=== PATIENT | male | born 2000 | race Caucasian/White ===

== ENCOUNTER 2024-11-29 23:08 | Emergency (ER) | payer SELFPAY ==
--- OUTSIDE RECORDS SUMMARY | 2024-11-29 23:11 | XMS REPORT | Continuity of Care Document ---
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 Role Phone ZAFAR SELLERS Attending Clinician Unavailable Problems Condition Name Condition Details Condition Category Status Onset Date Resolution Date Last Treatment Date Treating Clinician Comments Source Problem Condition [facility] Allergies, Adverse Reactions, Alerts Allergy Name Allergy Type Status Severity Reaction(s) Onset Date Inactive Date Treating Clinician Comments Source Amoxicil clemente Allergy to substanc e Active Unknown 12-16 00:00: 00 [facility] Social History Social Habit Start Date Stop Date Quantity Comments Source Sex Assigned At 2000 00:00:00 2000 00:00:00 Male [facility] Smoking Status Start Date Stop Date Source Unknown if ever smoked [facility] Medications Ordered Medication Name Filled Medication Name Start Date Stop Date Current Medication? Ordering Clinician Indication Dosage Frequency Signature (SIG) Comments Components Source Ofloxacin (Floxin Otic Soln) 5 Ml SOLN 11-14 11:13: 00 No 5[drp] Twice A Day [facility] Prednisone (Deltasone) 10 Mg TAB 2 10:51: 00 No 10mg Daily [facility] Promethazin e Hcl/Dextrom ethorphan (Phenergan Dm Liq) 118 Ml SYRP 2 10:51: 00 12-23 00:00 :00 No 5mL Every 6 Hours for Cough [facility] Trimethopri m/Sulfameth oxazole (Bactrim Ds, Septra Ds, Sulfatrim Ds) 1 Each TAB 2-05 10:51: 00 12-03 00:00 :00 No 1 Twice A Day [facility] Cephalexin (Keflex) 500 Mg CAP 01-14 18:00: 00 No 500mg Four Times Daily [facility] Cefdinir (Omnicef) 300 Mg CAP 12-16 10:42: 00 No 300mg Twice A Day [facility] Cetirizine Hcl (Zyrtec) 10 Mg TAB 12-16 10:42: 00 No 10mg Daily [facility] Ibuprofen (Motrin) 800 Mg TAB 12-16 10:42: 00 No 800mg Every 8 Hours as needed for Pain Or Temp>100 [facility] Neomycin/Po lymyxin/Hyd rocortisone (Cortispori n Otic Soln) 10 Ml DROPS.SUSP 12-16 10:42: 00 No 3[drp] Three Times A Day [facility] Vital Signs Vital Name Observation Time Observation Value Comments S kirsty BP Diastolic 2020-11-14 11:26:00 75 mm[Hg] [facility] BP Systolic 2020-11-14 11:26:00 124 mm[Hg] [facility] Heart Rate 2020-11-14 11:26:00 83 /min [facility] Respiratory rate 2020-11-14 11:26:00 15 /min [facility] Body Temperature 2020-11-14 11:26:00 97.7 [degF] [facility] BP Diastolic 2020-11-14 09:55:00 75 mm[Hg] [facility] BP Systolic 2020-11-14 09:55:00 124 mm[Hg] [facility] Heart Rate 2020-11-14 09:55:00 83 /min [facility] Respiratory rate 2020-11-14 09:55:00 15 /min [facility] Body Temperature 2020-11-14 09:55:00 97.7 [degF] [facility] Procedures Procedure Date / Time Performed Performing Clinicia n Source EMERGENCY DEPT VISIT 2020-11-14 00:00:00 [facility] Encounters Start Date/Time End Date/Time Encounter Type Admission Type Attending Clinicians Care Facility Care Department Encounter ID Source 2020-11-14 09:44:00 2020-11-14 11:27:00 Departed Emergency Room ZAFAR SELLERS [id number] [facility] Results Test Description Test Time Test Comments Results Resul t Comments Source PATHOLOGY REPORT 2019-02-10 11:45:00 [facility] PATHOLOGYP.[address], [place] [address] [facility] ROBERTH ANDREW M.D.ROBERT L. HUTTON, M.D.CHARLES E. BURNS, M.D. Pati ent: VIJI CARTER 2000 [id number] MRoom:Hosp#: [id number] O rdering Physician: Cinthia SIMPSON Rec.: 02/09/2019Date of Proc.: 02/09/2019Lab No.: [id number] _PRE-OPERATIVE DIAGNOSIS:Chronic tonsillitis, hypertrophy.FINAL ANATOMIC DIAGNOSIS:TONSILS, BILATERAL TONSILLECTOMY:TONSILLA R TISSUE WITH REACTIVE LYMPHOID HYPERPLASIA.MICROSCOPI C EXAMINATION:One slide examined, description omitted.GROSS APPEARANCE:Labeled "tonsils," consists of two tonsils measuring 2.4 and 2.5 cmrespectively. On sectioning no mass lesions are identified.Loreto esposito submitted one cassette.PATHOLOGIST: Epifanio Busby Electronically Signed: 02/10/2019 [id number] 13:05:00* Test Item Value Reference Range Interpretation Comme nts PTT (test code = PTT) 34.3 SECONDS 24.4-36.3 HEPARIN THERAPEU TIC RANGE 57-92 SECONDS [id number] 12:17:00* Test Item Value Reference Range Interpretation Comme nts WBC (test code = WBC) 6.5 K/UL 3.5-10.9 RBC (test code = RBC) 5.15 M/UL 4.3-5.7 HGB (test code = HGB) 15.2 G/DL 13.0-17.9 HCT (test code = HCT) 45.4 % 38-52 MCV (test code = MCV) 88.2 FL 80-98 MCH (test code = MCH) 29.5 PG 28-32 MCHC (test code = MCHC) 33.5 G/DL 32.5-36.5 RDW (test code = RDW) 13.1 % 11.5-14.5 PLT (test code = PLT) 392 K/UL 150-450 MPV (test code = MPV) 10.0 FL 7.4-10.4 MANDIFF (test code = MANDIFF) NO SCAN (test code = SCAN) NO NEUT% (test code = NEUT%) 48.6 % 40-75 LYMPH% (test code = LYMPH%) 36.6 % 24-44 MONO% (test code = MONO%) 10.3 % 0-13 EOS% (test code = EOS%) 3.7 % 0-4 BASO % (test code = BASO%) 0.6 % 0-2 IG (test code = IG) 0 % 0-1 IG% (test code = IG%) 0.2 % 0-1 IG% = Metamyeloc ytes, Myelocytes, and Promyelocytes. (Immature neutrophils not including "bands".) > 3% IG indicates risk of sepsis NRBC% (test code = NRBC%) 0 /100 WBC ABS NEUT (test code = NEUT) 3.2 K/UL 1.2-7.2 Notes Date/Time Note Provider Source 2019-02-09 10:06:[address] [address] Patient Name: VIJI CARTER Patient#: [id number] Admission Date: 02/09/2019 Date of : 2000 Age/Gender: 19/M HSSV/RM/BED: DSE/ Admitting Phys: Gregorio Simpson MD OPERATIVE NOTE DATE OF SURGERY: 02/09/2019 SURGEON: Gregorio Simpson MD PREOPERATIVE DIAGNOSIS Recurrent otitis media, recurrent adenotonsillitis and adenotonsillar hypertrophy causing snoring-sleep disorder. POSTOPERATIVE DIAGNOSIS Recurrent otitis media, tonsillar hypertrophy and recurrent tonsillitis causing snoring-sleep disorder. TITLE OF PROCEDURE 1.Tonsillectomy 2.Bilateral tympanostomy with placement of pressure equalizing tubes using the operating microscope. ANESTHESIA General. ANESTHESIOLOGIST Field. INDICATION FOR SURGERY The patient had recurrent otitis media, recurrent tonsillitis and tonsillar hypertrophy. FINDINGS Patient had serous fluid both middle ear clefts no perforations, no cholesteatomas, no other abnormalities. He had no adenoidal tissue in the nasopharynx. There was no submucous cleft. No shortened palate. No deepened pharynx. He had 3+ enlarged deeply recessed necrotic tonsils that were holding food debris. COMPLICATIONS None. ESTIMATED BLOOD LOSS Less than 10 cc. DESCRIPTION OF PROCEDURE The patient was taken to the operating room and under microscopic power, external auditory canals were cleaned. Anterior inferior myringotomy was performed. Fluid was suctioned free of the middle ear cleft and an Barrow grommet tube was placed without difficulty. Ciprodex drops were placed in the external auditory canal. Cotton balls were placed in the meatus. The patient was taken to the operating room and induced with general anesthesia. A tonsillar gag was introduced. Digital palpation and passive mobility studies were performed of the palate, including mirror exam in the nasopharynx. Using a curved Allis, we were able to grasp the left tonsil. Using a Wilkinson tip Bovie Legally authenticated by SANAZ CORRALES 2019-02-10 08:52:52 on low coag current, we performed cauterization tonsillectomy on the left side. The same procedure was performed on the right. Adequate hemostasis was achieved. The tonsillar gag was released. There was no bleeding. Gregorio Simpson MD TT: 02/09/2019 10:06:24 CCJ/MODL /[id number] Electronically Authenticated and Edited by: Gregorio Simpson M.D. on 02/10/2019 08:52 AM CDT Legally authenticated by SANAZ CORRALES 2019-02-10 08:52:52 GREGORIO SIMPSON
--- NOTE | 2024-11-29 23:48 | EDPHYS ---
Physician Documentation [facility] Name: Damian Horan Age: 24 yrs Sex: Male : 2000 Arrival Date: 11/29/2024 Time: 23:08 Bed 12 Private MD: ED Physician Mohan Arguelles HPI: 11/29 23:18 This 24 yrs old Male presents to ER via Unassigned with complaints of Rectal sp4 Bleeding. 11/30 23:37 24-year-old male presents with 2 months of episodic bright red rectal bleeding. He sp4 reported some pain with bleeding.. Historical: - Allergies: 11/29 23:25 Amoxicillin; me1 - Home Meds: 23:25 None [Active]; me1 - PMHx: 23:25 None; me1 - PSHx: 23:25 Appendectomy; me1 - Immunization history:: Adult Immunizations up to date. - Infectious Disease History:: Denies. - Social history:: Smoking status: Patient denies any tobacco usage or history of. - Family history:: not pertinent. ROS: 11/30 23:37 Constitutional: Negative for fever, chills, and weight loss, positive rectal bleed sp4 All other systems are negative, Exam: 23:37 Constitutional: This is a well developed, well nourished patient who is awake, alert, sp4 and in no acute distress. Head/Face: Normocephalic, atraumatic. Eyes: Pupils equal round and reactive to light, extra-ocular motions intact. Lids and lashes normal. Conjunctiva and sclera are not injected. Cornea within normal limits. Periorbital areas with no swelling, redness, or edema. ENT: Nares patent. No nasal discharge, no septal abnormalities noted. Tympanic membranes are normal and external auditory canals are clear. Oropharynx with no redness, swelling, or masses, exudates, or evidence of obstruction, uvula midline. Mucous membranes moist. Neck: Trachea midline, no thyromegaly or masses palpated, and no cervical lymphadenopathy. Supple, full range of motion without nuchal rigidity, or vertebral point tenderness. Chest/axilla: Normal chest wall appearance and motion. Nontender with no deformity. No lesions are appreciated. Cardiovascular: Regular rate and rhythm with a normal S1 and S2. No gallops, murmurs, or rubs. Normal PMI, no JVD. No pulse deficits. Respiratory: Lungs have equal breath sounds bilaterally, clear to auscultation and percussion. No rales, rhonchi or wheezes noted. No increased work of breathing, no retractions or nasal flaring. Abdomen/GI: Soft, with normal bowel sounds. No distension or tympany. No guarding or rebound. No evidence of tenderness throughout. Back: No spinal tenderness. No costovertebral tenderness. Male : Normal genitalia with no discharge or lesions. Normal rectal tone, normal examination with no blood no melena, no mass, no hemorrhoids, no signs of fissures or fistulas. No active bleeding. Skin: Warm, dry with normal turgor. Normal color with no rashes, no lesions, and no evidence of cellulitis. MS/ Extremity: Pulses equal, no cyanosis. Neurovascular intact. Full, normal range of motion. Neuro: Awake and alert, GCS 15, oriented to person, place, time, and situation. Cranial nerves II-XII grossly intact. Motor strength 5/5 in all extremities. Sensory grossly intact. Psych: Awake, alert, with orientation to person, place and time. Behavior, mood, and affect are within normal limits Vital Signs: 11/29 23:23 BP 140 / 85; Pulse 101; Resp 17; Temp 98.1; Pulse Ox 97% ; Weight 127.01 kg; Height 6 me1 ft. 2 in. ; Pain 4/10; 23:54 BP 137 / 86; Pulse 99; Resp 17; Temp 98.1; Pulse Ox 98% ; me1 23:23 Body Mass Index 35.95 (127.01 kg, 187.96 cm) me1 23:23 Pain Scale: Adult me1 [place] Coma Score: 11/30 23:37 Eye Response: spontaneous(4). Motor Response: obeys commands(6). Verbal Response: sp4 oriented(5). Total: 15. MDM: 11/29 23:47 Medical Screening Exam initiated sp4 11/30 23:40 Differential diagnosis: hemorrhoids, fissure, abscess, pilonidal cyst, condyloma. Data sp4 reviewed: vital signs, nurses notes, old medical records. ED course: Exam today is basically normal. Vital signs normal. Patient was advised to see Dr. Means for outpatient colonoscopy. Administered Medications: No medications were administered Disposition Summary: 11/29/24 23:47 Discharge Ordered Problem: new sp4 Symptoms: have improved sp4 Condition: Stable sp4 Diagnosis - Acute rectal bleeding, anal fissure sp4 Followup: sp4 - With: Lazaro Means MD - When: 7 - 10 days - Reason: Recheck today's complaints Discharge Instructions: - Discharge Summary Sheet sp4 - Anal Fissure, Adult, [id number] sp4 Forms: - Patient Portal Instructions sp4 Signatures: Mohan Arguelles MD MD sp4 Meena Velazco, RN RN me1
--- NOTE | 2024-11-29 23:48 | ER ---
Nurse's Notes [facility] Name: Damian Horan Age: 24 yrs Sex: Male : 2000 Arrival Date: 11/29/2024 Time: 23:08 Bed 12 Private MD: Diagnosis: Acute rectal bleeding, anal fissure Presentation: 11/29 23:23 Chief complaint: Patient states: he has had bright red blood from his rectum for over a me1 month. Tonight he had rectal bleeding without a bowel movement. c/o pain to rectum 01/25. Coronavirus screen: Vaccine status: Patient reports being unvaccinated. Ebola Screen: No symptoms or risks identified at this time. Initial Sepsis Screen: Does the patient meet any 2 criteria? No. Patient's initial sepsis screen is negative. Does the patient have a suspected source of infection? No. Patient's initial sepsis screen is negative. Risk Assessment: Do you want to hurt yourself or someone else? Patient reports no desire to harm self or others. Onset of symptoms is unknown. 23:23 Method Of Arrival: Ambulatory nd1 23:23 Acuity: WERO 3 me1 Historical: - Allergies: 23:25 Amoxicillin; me1 - Home Meds: 23:25 None [Active]; me1 - PMHx: 23:25 None; me1 - PSHx: 23:25 Appendectomy; me1 - Immunization history:: Adult Immunizations up to date. - Infectious Disease History:: Denies. - Social history:: Smoking status: Patient denies any tobacco usage or history of. - Family history:: not pertinent. Screenin:25 [facility] ED Fall Risk Assessment (Adult) History of falling in the last 3 months, me1 including since admission No falls in past 3 months (0 pts) Confusion or Disorientation No (0 pts) Intoxicated or Sedated No (0 pts) Impaired Gait No (0 pts) Mobility Assist Device Used No (0 pt) Altered Elimination No (0 pt) Score/Fall Risk Level 0 - 2 = Low Risk Maintained a safe environment, Provided non-skid footwear, Hourly rounding (assess needs \T\ fall precautionary measures) done. Abuse screen: Denies threats or abuse. Nutritional screening: No deficits noted. Tuberculosis screening: No symptoms or risk factors identified. Assessment: 23:25 General: Appears in no apparent distress. well groomed, well developed, well nourished, me1 Behavior is calm, cooperative, appropriate for age, Reports he has had bright red blood from his rectum for over a month. Tonight he had rectal bleeding without a bowel movement. c/o pain to rectum 4/10. Pain: Complains of pain in gluteal cleft Pain does not radiate. Pain currently is 4 out of 10 on a pain scale. Quality of pain is described as aching, Pain began gradually, Is continuous. Neuro: Level of Consciousness is awake, alert, obeys commands, Oriented to person, place, time, situation, Appropriate for age. Cardiovascular: Patient's skin is warm and dry. Respiratory: Airway is patent Respiratory effort is even, unlabored, Respiratory pattern is regular, symmetrical. GI: Reports rectal bleeding, bloody stool. : No signs and/or symptoms were reported regarding the genitourinary system. EENT: No signs and/or symptoms were reported regarding the EENT system. Derm: Skin is intact, is healthy with good turgor, Skin is pink, warm \T\ dry. Musculoskeletal: No signs and/or symptoms reported regarding the musculoskeletal system. Vital Signs: 23:23 BP 140 / 85; Pulse 101; Resp 17; Temp 98.1; Pulse Ox 97% ; Weight 127.01 kg; Height 6 me1 ft. 2 in. ; Pain 4/10; 23:54 BP 137 / 86; Pulse 99; Resp 17; Temp 98.1; Pulse Ox 98% ; me1 23:23 Body Mass Index 35.95 (127.01 kg, 187.96 cm) me1 23:23 Pain Scale: Adult me1 [place] Coma Score: 11/30 23:37 Eye Response: spontaneous(4). Motor Response: obeys commands(6). Verbal Response: sp4 oriented(5). Total: 15. ED Course: 11/29 23:10 Patient arrived in ED. [id number] 23:18 Mohan Arguelles MD is Attending Physician. sp4 23:25 Triage completed. me1 23:25 Arm band placed on Patient placed in an exam room. me1 23:25 Patient has correct armband on for positive identification. Bed in low position. Call [facility] light in reach. Side rails up X 1. Provided Education on: POC. Verbalized understanding.. 23:25 Patient did not have IV access during this emergency room visit. me1 23:43 Served as a house parent during rectal exam. me1 23:46 Lazaro Means MD is Referral Physician. sp4 Administered Medications: No medications were administered Medication: 23:25 VIS not applicable for this client. me1 Outcome: 23:25 Discharged to home ambulatory, with significant other, me1 23:25 Condition: stable 23:25 Discharge instructions given to patient, significant other, Instructed on discharge instructions, follow up and referral plans. Demonstrated understanding of instructions, follow-up care, 23:47 Discharge ordered by . sp4 23:54 Patient left the ED. me1 Signatures: Marissa Chung jj6 Mohan Arguelles MD MD sp4 Meena Velazco RN RN me1 Corrections: (The following items were deleted from the chart) 23:50 23:23 Chief complaint: Patient states: he has had bright red blood from his rectum for me1 over a month. Tonight he had rectal bleeding without a bowel movement. c/o pain to rectum 01/25 me1
[2024-11-30 00:23] VITALS: TEMP 98.1
[2024-11-30 00:30] VITALS: BP 137/86; O2SAT 98
== END 2024-11-29 23:54 | disposition home or self-care (01) ==
LOC: ER 23:08
DX: K60.2 Anal fissure, unspecified (principal)